=== PATIENT | female | born 1995 | race Caucasian/White ===

== ENCOUNTER 2019-07-15 11:10 | Inpatient (IN) | payer OTHER ==
[~2019-07-15] VITALS: Ht 154.9 cm; Wt 61.4 kg
[2019-07-15 11:43] LABS: BASOPHILS 0.1 % (0-2); EOSINOPHILS 1.2 % (0-7); HEMATOCRIT 39.3 % (36.0-48.0); IMMATURE GRANULOCYTES 0.1 % (0-5); LYMPHOCYTES 37.5 % (15-50); MCH 31.9 pg (26.0-34.0); MCHC 33.1 g/dL (31.0-37.0); MCV 96.3 fL (80.0-100.0); MEAN PLATELET VOLUME 10.7 fL (7.4-10.4); MONOCYTES 8.2 % (2-11); NEUTROPHILS 52.9 % (40-80); PLATELET COUNT 306 10x3/uL (130-400); RBC 4.08 10x6/uL (4.00-5.40); RDW 13.4 % (11.5-14.5); WBC 8.4 10x3/uL (4.8-10.8)
--- NOTE | 2019-07-15 11:44 | NUR ---
URINE COLLECTED AND SENT TO LAB.
[2019-07-15 12:01] LABS: HCG SERUM POSITIVE (NEGATIVE)
[2019-07-15 12:05] LABS: CALC OSMOLALITY 278 mosm/kg (275-300); CALCIUM 8.9 mg/dL (8.5-10.1); CHLORIDE - SERUM 104 mmol/L (98-107); CREATININE - SERUM 0.7 mg/dL (0.6-1.3); GLUCOSE 91 mg/dL (74-106); POTASSIUM - SERUM 3.9 mmol/L (3.5-5.1); SODIUM 141 mmol/L (136-145); UREA NITROGEN 7 mg/dL (7-18); eGFR NON AFRICAN AMERICAN > 90 mL/min (90-120)
[2019-07-15 12:07] LABS: BILIRUBIN NEGATIVE (NEGATIVE); GLUCOSE NEGATIVE (NEGATIVE); KETONE NEGATIVE (NEGATIVE); NITRITE NEGATIVE (NEGATIVE); UROBILINOGEN NORMAL (NORMAL)
[2019-07-15 12:32] LABS: ALKALINE PHOSPHATASE 73 U/L (30-120); ALT (SGPT) 21 U/L (10-68); HCG - QUANTITATIVE (MATERNAL) 1462 mIU/mL
[2019-07-15 12:39] LABS: ALBUMIN 3.6 g/dL (3.4-5.0)
--- NOTE | 2019-07-15 15:25 | NUR ---
RECEIVED PT FROM ER VIA WHEELCHAIR TO ROOM 1274. PT TO BR TO VOID. VOIDS FREELY. STATES WEARING PANTILINER THAT PT HAS NOT CHANGED. PT INSTRUCTED TO NOTIFY NURSE OF CHANGING PERIPAD, HAVING BLEEDING OR CLOTS. PT VERBALIZES UNDERSTANDING. PT AMB BACK TO BED. STEADY GAIT. VSS. ADMISSION ASSESSMENT PER Manju BEAL RN AT THIS TIME. PIV TO LEFT FOREARM-20 GAUGE CATHELON. SITE WITHOUT REDNESS, SWELLING OR DRAINAGE NOTED. NS INFUSING AT 125 ML/HR VIA ALARIS PUMP. PT ORIENTED TO ROOM, BED, AND CALL LIGHT. SR UP X2. CALL LIGHT IN REACH.
[2019-07-15] MEDS ORDERED: PRENAVITE1 TAB PO (15:27)
[2019-07-15 15:31] VITALS: BP 111/60
--- NOTE | 2019-07-15 16:30 | NUR ---
PT EXPRESSES DESIRE TO EAT. WILL NOTIFY .
--- NOTE | 2019-07-15 16:31 | NUR ---
DR LUO NOTIFIED OF PT REQUEST. ORDERS RECEIVED FOR LABWORK, PAIN MED. WILL CALL WITH LAB RESULTS.
--- NOTE | 2019-07-15 16:45 | NUR ---
PT OOB AND AMB TO BR TO VOID. STEADY GAIT. TOLERATES ACTIVITY WELL.
--- NOTE | 2019-07-15 16:55 | NUR ---
LAB STAFF HERE TO OBTAIN ORDERED LAB.
[2019-07-15 17:24] LABS: BASOPHILS 0.2 % (0-2); HEMATOCRIT 37.3 % (36.0-48.0); HEMOGLOBIN 12.8 g/dL (12-16); IMMATURE GRANULOCYTES 0.5 % (0-5); LYMPHOCYTES 32.5 % (15-50); MCH 32.3 pg (26.0-34.0); MCHC 34.3 g/dL (31.0-37.0); MEAN PLATELET VOLUME 11.2 fL (7.4-10.4); MONOCYTES 7.2 % (2-11); NEUTROPHILS 58.6 % (40-80); PLATELET COUNT 294 10x3/uL (130-400); RBC 3.96 10x6/uL (4.00-5.40); RDW 13.2 % (11.5-14.5)
[2019-07-15 17:26] LABS: MCV 94.2 fL (80.0-100.0); WBC 11.6 10x3/uL (4.8-10.8)
--- NOTE | 2019-07-15 17:36 | NUR ---
DR LUO NOTIFIED OF LAB RESULTS. STATES PT MAY EAT; NPO AFTER MIDNIGHT.
[2019-07-15 17:38] LABS: APTT 23.3 SECONDS (22.8-39.4); INR 0.98 (0.85-1.17)
--- NOTE | 2019-07-15 17:47 | NUR ---
PT SITTING UP IN BED. CONSUMING REG DIET. C/O ABDOMINAL CRAMPING OF "8" ON 0-10 PAIN SCALE. NORCO 5/325 GIVEN PO ORDERED. PT INSTRUCTED ON MED. VERBALIZES UNDERSTANDING.
[2019-07-15 19:35] VITALS: BP 107/55
--- NOTE | 2019-07-15 19:35 | NUR ---
ASSESSMENT PER FLOW SHEET, VS OBTAINED, IV IN LEFT FA INTACT WITH NO REDNESS OR EDEMA INFUSING VIA PUMP NS AT 125 ML/HR, PT DENIES FLATUS, NO BM, VOIDING WITH NO DIFFICULTY, AND SCANT VAG BLEEDING, PT RATES URIAS PAIN 12/15, INFORMED PT THAT I WILL SEE WHAT AND WHEN SHE HAS PAIN MED DUE, PT VERBALIZES UNDERSTANDING, DENIES NEEDS AT THIS TIME, BED IN LOW POSITION, SIDE RAILS X 2, CALL LIGHT IN REACH
--- NOTE | 2019-07-15 20:00 | NUR ---
PT TRANSFERRED VIA AMB, GAIT STEADY, TO ROOM 1221, PT TO BED, PT REQUESTED AND SERVED COLA AND FRESH H20, PT ORIENTED TO ROOM, BED IN LOW POSITION, SIDE RAILS X 2, CALL LIGHT IN REACH
--- NOTE | 2019-07-15 21:17 | NUR ---
PT WATCHING TV, REQUESTED AND SERVED SANDWICH TRAY, DENIES FURTHER NEEDS
--- NOTE | 2019-07-15 22:40 | NUR ---
PT PIPING ENGINEER LIGHT, IV BEEPING, NEW BAG OF NS HUNG INFUSING VIA PUMP AT 125 ML/HR PER MD ORDERS, SEE EMAR, PT DENIES NEEDS AT THIS TIME, BED IN LOW POSITION, SIDE RAILS X 2, CALL LIGHT IN REACH
[2019-07-16] VITALS (11 sets, daily range): BP systolic 92–106; BP diastolic 44–69; Ht 154.9 cm; Wt 61.4 kg
--- NOTE | 2019-07-16 | NUR ---
PT TAFE REGISTRAR LIGHT, IV BEEPING, IV IS POSITIONAL, POSITIONED PT'S ARM ON PILLOW, PT INST OF NPO NOW, PT VERBALIZES UNDERSTANDING, VS OBTAINED, DENIES NEEDS OR PAIN AT THIS TIME
--- NOTE | 2019-07-16 00:21 | NUR ---
ALEXA FUCHS, JOSE DE JESUS REPORTS THAT SHE SPOKE TO DR LUO REGARDING TYLENOL FOR PT'S URIAS, SHE REPORTS THAT HE ORDERED TYLENOL 650MG PO [id number] PAIN
--- NOTE | 2019-07-16 01:30 | NUR ---
PT RESTING WITH EYES CLOSED, RESP QUIET, NO DISTRESS NOTED, LEFT UNDISTURBED AT THIS TIME
--- NOTE | 2019-07-16 03:23 | NUR ---
PT RESTING WITH EYES CLOSED, RESP QUIET, NO DISTRESS NOTED, LEFT UNDISTURBED AT THIS TIME
--- NOTE | 2019-07-16 05:25 | NUR ---
LAB IN ROOM FOR AM BLOOD DRAW
--- NOTE | 2019-07-16 05:40 | NUR ---
LAB OUT OF ROOM, VS OBTAINED, INFORMED PT THAT SHE WILL NEED TO HAVE A CHG BATH BEFORE SURGERY, PT VERBALIZES UNDERSTANDING, INFORMED PT THAT I WILL BE BACK SHORTLY TO ASSIST WITH BED BATH, PT VERBALIZES UNDERSTANDING, DENIES NEEDS AT THIS TIME
--- NOTE | 2019-07-16 05:43 | NUR ---
PT GIVEN HIBICLENS BATH THIS MORNING
[2019-07-16 06:19] LABS: BASOPHILS 0.1 % (0-2); EOSINOPHILS 1.7 % (0-7); HEMATOCRIT 35.6 % (36.0-48.0); HEMOGLOBIN 11.7 g/dL (12-16); IMMATURE GRANULOCYTES 0.2 % (0-5); LYMPHOCYTES 46.3 % (15-50); MCH 32.1 pg (26.0-34.0); MCHC 32.9 g/dL (31.0-37.0); MEAN PLATELET VOLUME 11.8 fL (7.4-10.4); MONOCYTES 8.9 % (2-11); NEUTROPHILS 42.8 % (40-80); RBC 3.65 10x6/uL (4.00-5.40); RDW 13.5 % (11.5-14.5)
[2019-07-16 06:25] LABS: MCV 97.5 fL (80.0-100.0); PLATELET COUNT 229 10x3/uL (130-400); WBC 8.2 10x3/uL (4.8-10.8)
[2019-07-16 06:37] LABS: ALBUMIN 3.1 g/dL (3.4-5.0); ALKALINE PHOSPHATASE 63 U/L (30-120); ALT (SGPT) 21 U/L (10-68); BILIRUBIN - TOTAL 0.29 mg/dL (0.2-1.3); CALC OSMOLALITY 281 mosm/kg (275-300); CALCIUM 8.3 mg/dL (8.5-10.1); CARBON DIOXIDE 23.6 mmol/L (21.0-32.0); CHLORIDE - SERUM 105 mmol/L (98-107); CREATININE - SERUM 0.7 mg/dL (0.6-1.3); GLUCOSE 90 mg/dL (74-106); POTASSIUM - SERUM 4.3 mmol/L (3.5-5.1); PROTEIN - SERUM 5.9 g/dL (6.4-8.2); SODIUM 142 mmol/L (136-145); eGFR NON AFRICAN AMERICAN > 90 mL/min (90-120)
[2019-07-16 07:10] LABS: UREA NITROGEN 11 mg/dL (7-18)
--- NOTE | 2019-07-16 08:17 | NUR ---
ASSESSMENT DONE. VS DONE. PT DOZING AT TIMES. DENIES PAIN AT THIS TIME. DENIES NEEDS. RING X1 AND TOUNGE RING REMOVED PER PT AND PLACED IN CONTAINER WITH LID AND PLACED IN PT BAG PER REQUEST OF PT. DENIES NEEDS.
--- NOTE | 2019-07-16 08:20 | NUR ---
PHONED DR GANDARA FOR PREOP ORDERS.
--- NOTE | 2019-07-16 08:53 | NUR ---
up to bathroom to void. preop meds given. scd's placed. preop vs done.
--- NOTE | 2019-07-16 09:14 | NUR ---
PT TO OR VIA BED. PAGED DR LUO TO INFORM OF THIS.
--- NOTE | 2019-07-16 09:40 | NUR ---
PT DOZING AT THIS TIME- VISITOR AT BEDSIDE.
--- NOTE | 2019-07-16 11:34 | NUR ---
PT ARRIVES TO ROOM VIA BED FROM RR. DROWSY BUT VERBAL RESPONSES TO QUESTIONS APPRO. ROCK AT WILL. PT RATES PAIN A 7 ON SCALE OF 0-10 WHEN QUESTIONED. PT STATES THEY GAVE ME SOMETHING IN MY IV FOR PAIN. VS DONE. IV LT FOREARM- UP 1000CC NS CONNECTED TO PUMP AT 125CC/HR. ABD LAP INCISIONS X3-WITH BANDAIDES-CD&I. MAHAJAN CATH WITH CLEAR PALE YELLOW URINE. 200CC.
--- NOTE | 2019-07-16 11:38 | NUR ---
PT USING PHONE TO CALL HER DAD.
--- NOTE | 2019-07-16 11:47 | NUR ---
BEEPED DR LUO FOR POST OP ORDERS.
--- NOTE | 2019-07-16 12:18 | NUR ---
RESTING -DENIES NEEDS.
--- NOTE | 2019-07-16 12:30 | NUR ---
ABD SOFT. LAP INCISION SITE APPEARANCE WNL-CD&I.
--- NOTE | 2019-07-16 13:38 | NUR ---
DR LUO CALLS UNIT- STATES THAT HE WILL COME TO SEE HER FOR DISCHARGE TODAY.
--- NOTE | 2019-07-16 13:49 | NUR ---
DR LUO HERE TO SEE PT. NEW ORDERS RECEIVED.
--- NOTE | 2019-07-16 13:51 | NUR ---
DR LUO INSTRUCTS TO GIVE PT NORCO PO IF NEEDS PAIN MEDICATION.
--- NOTE | 2019-07-16 13:54 | NUR ---
MAHAJAN CATH REMOVED POST BULB DEFLATED- 500CC URINE IN BAG. PT INSTRUCTED TO CALL WHEN NEEDS TO VOID. WATER GIVEN TO DRINK. REQUESTING PAIN MEDICATION AT THIS TIME. RATES PAIN AN 8 ON SCALE OF 0-10.
--- NOTE | 2019-07-16 13:59 | NUR ---
STATES IS HUNGRY AND REQUESTING FOOD.
--- NOTE | 2019-07-16 14:04 | NUR ---
SANDWICH TRAY SERVED. SITTING UP IN BED-EATING.
--- NOTE | 2019-07-16 14:35 | NUR ---
ATE 1/2 OF SANDWICH- VERENA WELL. REQUESTING COLA. COLA GIVEN.
--- NOTE | 2019-07-16 15:15 | NUR ---
UP TO BATHROOM- VOIDED 200CC CLEAR PALE URINE. EALKING ABOUT IN ROOM THEN RETURNS TO BED.
--- NOTE | 2019-07-16 16:00 | NUR ---
AWAKE AND WATCHING TV. ENCOURAGED TO DRINK MORE WATER.
--- NOTE | 2019-07-16 16:30 | NUR ---
VOIDED 100CC CLEAR URINE.
--- NOTE | 2019-07-16 16:47 | MORECARE ---
CASE MANAGEMENT DISCHARGE SUMMARY PATIENT: ANTONIO SOLIS UNIT: [id number] ADM DATE: 07/15/19 AGE: 24 : [birth year] SEX: F ROOM/BED: D.1221 AUTHOR: FRANCISCO,DOC PHYSICIAN: REFERRING PHYSICIAN: MOHSEN LUO MD DATE OF SERVICE: 07/16/19 Discharge Plan Patient Name: ANTONIO SOLIS Facility: [facility]:[place] : 1995 Planned Disposition: Other Type of Facility Anticipated Discharge Date: Discharge Date: Expected LOS: Initial Reviewer: [email or web address] Initial Review Date: 07/15/2019 Generated: 07/16/19 5:46 pm Comments DCP- Discharge Planning Updated by [email or web address]: Hawa Miller on 07/16/19 3:[address] Plan: Return to [facility]. CM met with patient to discuss initial discharge planning. Patient is in agreement to proceed with the assessment. Patient reports that she lives at home independently with her father in [place]. Patient is alert/oriented. PCP: Kinjal ROSALES with [place]. Pharmacy: [facility]. HHS: No. DME: None. Patient gives permission to speak with family members. Emergency contact: Alphonso Solis (father) [phone]. Patient is Independent with all ADL's, medication management ELECTRICAL INTERN. Patient plans to return to [facility] upon DC. Patient denies the need for additional services at this time and feels safe returning to previous environment. Patient denies being hospitalized within the past 30 days. Patient denies the use of community resources ELECTRICAL INTERN. Transportation at time of discharge: [facility] commercial representative will pick her up, patient has the number. DCPIA - Discharge Planning Initial Assessment Updated by [email or web address]: Hawa Miller on 07/16/19 4:45 pm * Is the patient Alert and Oriented? Yes * How many steps to enter\exit or inside your home? * PCP Tavo Layton APRN * Pharmacy [facility] * Preadmission Environment Other * Other Environment [facility] * Facility Name [facility] * ADLs Independent * Equipment None * Other Equipment NA * List name and contact numbers for known caregivers / representatives who currently or will assist patient after discharge: Alphonso Solis (father) [phone] * Verbal permission to speak to the caregivers and representatives has been obtained from the patient. Yes * Community resources currently utilized None * Please name any agencies selected above. NA * Additional services required to return to the preadmission environment? No * Can the patient safely return to the preadmission environment? Yes * Has this patient been hospitalized within the prior 30 days at any hospital? No Patient Name: ANTONIO SOLIS Page [id number] at 1647 All edits/amendments must be made on the electronic document DICTATION DATE: 07/16/191645 MARKETING RESEARCH COORDINATOR: CHHAYA 07/16/191645 RPT#: [id number] DC DATE: STATUS: ADM IN [facility] [address] [place] [address] END OF REPORT
--- NOTE | 2019-07-16 18:00 | NUR ---
VOIDED 200CC INTO CONTAINER.
[2019-07-16] MEDS ORDERED: HYDROCODON-ACE1 EAC7 PO (18:03)
--- NOTE | 2019-07-16 18:45 | NUR ---
DISCHARGE INST VERBAL AND WRITTEN GIVEN. PFW POST OP LAPRAOSCOPY INST FORM GIVEN. PRESCRIPTION X1 GIVEN WITH PT MED REC AND DRUG DATA INFO. PT HEALTH SUMMARY GIVEN. DENIES ANY QUESTIONS. PT STATES SHE WILL CALL HER RIDE AGAIN TO BE PICKED UP TO GO TO THE [facility]. DENIES OTHER NEEDS.
--- NOTE | 2019-07-16 19:22 | NUR ---
PT RIDE HERE - TO AUTO VIA W/C. TOLERATED WELL.
--- NOTE | 2019-07-17 16:40 | MORECARE ---
CASE MANAGEMENT DISCHARGE SUMMARY PATIENT: ANTONIO SOLIS UNIT: [id number] ADM DATE: 07/15/19 AGE: 24 : [birth year] SEX: F ROOM/BED: D.1221 AUTHOR: FRANCISCO,DOC PHYSICIAN: REFERRING PHYSICIAN: MOHSEN LUO MD DATE OF SERVICE: 07/17/19 Discharge Plan Patient Name: ANTONIO SOLIS Facility: [facility]:[place] : 1995 Planned Disposition: Other Type of Facility Anticipated Discharge Date: 07/16/19 Discharge Date: 07/16/2019 Expected LOS: 1 Initial Reviewer: [email or web address] Initial Review Date: 07/15/2019 Generated: 07/17/19 5:40 pm Comments DCP- Discharge Planning Updated by [email or web address]: Hawa Miller on 07/16/19 3:[address] Plan: Return to [facility]. CM met with patient to discuss initial discharge planning. Patient is in agreement to proceed with the assessment. Patient reports that she lives at home independently with her father in [place]. Patient is alert/oriented. PCP: Kinjal ROSALES with [place]. Pharmacy: [facility]. HHS: No. DME: None. Patient gives permission to speak with family members. Emergency contact: Alphonso Solis (father) [phone]. Patient is Independent with all ADL's, medication management MUSIC ARRANGER. Patient plans to return to [facility] upon DC. Patient denies the need for additional services at this time and feels safe returning to previous environment. Patient denies being hospitalized within the past 30 days. Patient denies the use of community resources MUSIC ARRANGER. Transportation at time of discharge: [facility] nutrition representative will pick her up, patient has the number. DCPIA - Discharge Planning Initial Assessment Updated by [email or web address]: Hawa Miller on 07/16/19 4:45 pm * Is the patient Alert and Oriented? Yes * How many steps to enter\exit or inside your home? * PCP Tavo Layton APRN * Pharmacy [facility] * Preadmission Environment Other * Other Environment [facility] * Facility Name [facility] * ADLs Independent * Equipment None * Other Equipment NA * List name and contact numbers for known caregivers / representatives who currently or will assist patient after discharge: Alphonso Solis (father) [phone] * Verbal permission to speak to the caregivers and representatives has been obtained from the patient. Yes * Community resources currently utilized None * Please name any agencies selected above. NA * Additional services required to return to the preadmission environment? No * Can the patient safely return to the preadmission environment? Yes * Has this patient been hospitalized within the prior 30 days at any hospital? No Last DP export: 07/16/19 3:47 p Patient Name: ANTONIO SOLIS Page [phone] at 1640 All edits/amendments must be made on the electronic document DICTATION DATE: 07/17/19 1640 SENIOR COURTROOM CLERK: CHHAYA 07/17/19 1640 RPT#: [id number] DC DATE:07/16/19 STATUS: DIS IN [facility] [address] [place] [address] END OF REPORT
== END 2019-07-16 19:23 | disposition home or self-care (01) | DRG 819 ==
LOC: D.ER 11:10 → D.LD 13:55 → D.WS 13:55
PROVIDERS: Family Medicine; ADMIT Obstetrics & Gynecology; ATTEND Obstetrics & Gynecology
PROC: 0UB50ZZ Excision of Right Fallopian Tube, Open Approach (ICD-10-PCS; principal; 2019-07-16 09:30)
PROC: 10T20ZZ Resection of Products of Conception, Ectopic, Open Approach (ICD-10-PCS; 2019-07-16 09:30)
DX: O00.90 Unspecified ectopic pregnancy without intrauterine pregnancy (principal); O99.331 Smoking (tobacco) complicating pregnancy, first trimester